=== PATIENT | male | born 1955 | race American Indian/Alaskan Native ===

== ENCOUNTER 2019-03-12 13:54 | Outpatient (CLI) | payer BC, MEDICARE ==
--- NOTE | 2019-03-12 16:42 | Mammography Report ---
DEXA BONE DENSITY SCAN INDICATION: 63-year-old male for osteoporosis screening. COMPARISON: None available. LUMBAR SPINE (L1-L4): Bone mineral density (BMD) is 1.110 g/cm2. T-score is 0.2 (standard deviations of Young Adult mean). Z-score is 0.9 (standard deviations of Age Matched mean). LEFT FEMORAL NECK: Bone mineral density (BMD) is 1.226 g/cm2. T-score is 1.3 (standard deviations of Young Adult mean). Z-score is 1.9 (standard deviations of Age Matched mean). IMPRESSION: 1. WHO Classification: Normal bone density. Fracture Risk: Not Increased. Signer Name: Clarence Stokes MD Signed: 03/12/2019 4:37 PM Workstation Name: [id number]
== END 2019-03-12 13:55 | disposition home or self-care (01) ==
LOC: SPVWC 13:54
PROVIDERS: ATTEND Family Medicine
DX: Z13.820 Encounter for screening for osteoporosis (principal); Z79.52 Long term (current) use of systemic steroids
CPT/HCPCS: 77080